=== PATIENT | female | born 1940 | race Caucasian/White ===

== ENCOUNTER → 2016-12-17 | Outpatient (CLI) | payer MEDICARE, BC ==
[~2016-12-17] MED LIST: 3N1 COMMODE MC; ANAS1TAB PO; ATEN50TA PO; BEN25 PO; CEPH500C PO; COU1 PO; CPM MC; DIGO125T PO; DOCU-144 PO; DULO60CA59 PO; DUR25P TD; FLUT16SP17 NASAL; LEVO100T87 PO; MORP15TA92 PO; OXYC-481 PO; RANI150T9 PO; WALK1EAC23 MC; ZALE5CAP PO
--- NOTE | 2016-12-17 17:56 | RADRPT ---
PROCEDURE: Right knee radiographs. CLINICAL INDICATION: Right knee pain. TECHNIQUE: Four views. Weight bearing. Frontal, lateral, oblique, and patellar view. COMPARISON: No prior studies are available for comparison. FINDINGS: There is no fracture or dislocation. The soft tissues are normal. There are degenerative changes with osteophytes arising from all 3 joint compartment margins. There is medial and lateral joint compartment narrowing and mild deformity. There is no lytic or blastic lesion. There is no radiopaque foreign body. IMPRESSION: 1. Moderate degenerative changes of the right knee. RPTAT: QQ .George Medina MD, MD Date Time Electronically viewed and signed by .George Medina MD, MD on 12/17/2016 17:56 .R/
== END | disposition home or self-care (01) ==
LOC: HKI 10:33
PROVIDERS: ATTEND Orthopaedic Surgery
DX: M25.561 Pain in right knee (principal); M17.11 Unilateral primary osteoarthritis, right knee; Z96.652 Presence of left artificial knee joint
CPT/HCPCS: 20610; G0463; J7327

== ENCOUNTER → 2017-03-30 | Outpatient (CLI) | payer MEDICARE, BC | END | disposition home or self-care (01) | LOC: HKI 11:05 | PROVIDERS: ATTEND Orthopaedic Surgery | DX: M25.561 Pain in right knee (principal); M17.11 Unilateral primary osteoarthritis, right knee; Z96.652 Presence of left artificial knee joint | CPT/HCPCS: G0463 ==